=== PATIENT | female | born 1975 | race Two or more races ===

== ENCOUNTER 2018-07-14 15:50 | Emergency (ER) | payer BC ==
[~2018-07-14] VITALS: Ht 165.1 cm; Wt 113.0 kg
[2018-07-14 17:26] LABS: BASOPHILS % 0.4 % (0.0-2.0); EOSINOPHILS % 0.1 % (0.0-5.0); HEMATOCRIT. 37.2 % (36.0-48.0); HEMOGLOBIN. 12.3 g/dL (12.0-16.0); LYMPHOCYTES % 7.6 % (20.0-50.0); MEAN CORPUSCULAR HEMOGLOBIN 28.9 pg (28.0-32.0); MEAN PLATELET VOLUME 9.3 fl (7.4-10.4); MONOCYTES % 3.9 % (2.0-8.0); PLATELET 224 x1000/uL (130-400); RED BLOOD CELL COUNT 4.27 mill/uL (4.2-5.4); RED CELL DISTRIBUTION WIDTH 14.8 % (11.6-14.6)
[2018-07-14 17:29] LABS: CHLORIDE 107 mEq/L (98-107)
[2018-07-14] MEDS ORDERED: ASPIRIN 325MG TABLET PO ONE (17:30)
[2018-07-14] MEDS ORDERED: MAGNESIUM/ALUMINUM HYDROXIDE/SIMETHICONE 30ML UDC PO ONE (17:30)
[2018-07-14] MEDS ORDERED: ONDANSETRON HCL 4MG/2ML INJ IV ONE (17:30)
[2018-07-14] MEDS ORDERED: VISCOUS LIDOCAINE 2% 15 ML UDC PO ONE (17:30)
[2018-07-14 17:38] LABS: CLARITY URINE CLEAR (CLEAR); COLOR URINE YELLOW (YELLOW); KETONES URINE 1+ (NEGATIVE); LEUKOCYTE ESTERASE URINE NEGATIVE (NEGATIVE); NITRITE URINE NEGATIVE (NEGATIVE); OCCULT BLOOD URINE 2+ (NEGATIVE); PH URINE 5.5 (4.5-8.0); PROTEIN URINE NEGATIVE (NEGATIVE); SPECIFIC GRAVITY URINE 1.024 (1.005-1.030)
[2018-07-14 17:44] LABS: PROTHROMBIN TIME 10.3 sec (9.6-11.0)
[2018-07-14] MEDS ORDERED: MORPHINE SULFATE 4 MG/ML CPJ (NOT FOR IM USE) IV ONE (19:45)
[2018-07-14] MEDS ORDERED: KETOROLAC 30MG/ML VIAL IV ONE (19:45)
[2018-07-14 20:45] VITALS: BP 109/61
== END 2018-07-14 20:46 | disposition home or self-care (01) ==
LOC: ER 15:50
DX: K80.50 Calculus of bile duct without cholangitis or cholecystitis without obstruction (principal); Z98.890 Other specified postprocedural states
CPT/HCPCS: 36415; 71045; 76705; 80053; 81003; 81025; 83690; 84484; 85025; 85610; 93005; 96374; 96375; 99284; J1885; J2270; J2405